=== PATIENT | male | born 1985 | race Caucasian/White ===

== ENCOUNTER 2018-02-18 11:16 | Emergency (ER) | payer OTHER ==
[2018-02-18] MEDS ORDERED: Ibuprofen 800 MG TAB ONE (11:44)
--- NOTE | 2018-02-18 14:00 | RAD ---
CHEST 2 VIEWS: Date: 02/18/18 COMPARISON: 03/01/13. HISTORY: Cough. FINDINGS: Normal cardiac silhouette. Pulmonary vessels and hilum are normal. Costophrenic angles are clear. No mass. No consolidation. No pneumothorax. No osseous abnormalities. IMPRESSION: No acute cardiopulmonary process. POS: [facility]
== END 2018-02-18 12:51 | disposition home or self-care (01) ==
LOC: NAV ERS 11:16
DX: B34.9 Viral infection, unspecified (principal); F41.9 Anxiety disorder, unspecified; F32.9 Major depressive disorder, single episode, unspecified; F17.210 Nicotine dependence, cigarettes, uncomplicated
CPT/HCPCS: 71046; 87804; 99406

== ENCOUNTER 2018-02-26 21:00 | Emergency (ER) | payer OTHER | END 2018-02-26 21:55 | disposition home or self-care (01) | LOC: NAV ERS 21:00 | DX: S30.813A Abrasion of scrotum and testes, initial encounter (principal); J06.9 Acute upper respiratory infection, unspecified; F17.210 Nicotine dependence, cigarettes, uncomplicated; F41.9 Anxiety disorder, unspecified; F32.9 Major depressive disorder, single episode, unspecified; W23.0XXA Caught, crushed, jammed, or pinched between moving objects, initial encounter | CPT/HCPCS: 99283 ==